=== PATIENT | female | born 1995 | race Two or more races ===

== ENCOUNTER 2023-07-07 09:41 | Emergency (ER) | payer MEDICAID, OTHER ==
[~2023-07-07] VITALS: Ht 165.1 cm; Wt 73.0 kg
[2023-07-07 09:41] VITALS: TEMP 98.2; O2SAT 99
[2023-07-07] MEDS ORDERED: MORPHINE SULFATE 4 MG/ML SYR/VIAL IM ONE (14:15)
[2023-07-07] MEDS ORDERED: ONDANSETRON ODT 4 MG TAB PO ONE (14:15)
[2023-07-07 15:10] VITALS: BP 118/68; PULSE 68; RESP 16
[2023-07-07] MEDS ORDERED: ACET-1304 PO ×3 (15:11→16:26)
== END 2023-07-07 15:15 | disposition home or self-care (01) ==
LOC: EDBD 09:41 → EDUNIT# 09:41 → ER 09:41
DX: M79.605 Pain in left leg (principal); M79.604 Pain in right leg; R07.89 Other chest pain; Z79.899 Other long term (current) drug therapy; V49.9XXA Car occupant (driver) (passenger) injured in unspecified traffic accident, initial encounter; Y93.89 Activity, other specified; Y92.410 Unspecified street and highway as the place of occurrence of the external cause; Y99.8 Other external cause status
CPT/HCPCS: 81025; 96372; 99283; J2270; Q0162